=== PATIENT | female | born 1985 | race Caucasian/White ===

== ENCOUNTER 2018-02-20 14:57 | Outpatient (CLI) | payer OTHER | END 2018-02-20 16:19 | disposition home or self-care (01) | LOC: DCC 14:57 | DX: E11.8 Type 2 diabetes mellitus with unspecified complications (principal); M54.9 Dorsalgia, unspecified; R11.0 Nausea; Z87.440 Personal history of urinary (tract) infections; Z88.0 Allergy status to penicillin; Z79.4 Long term (current) use of insulin | CPT/HCPCS: G0463 ==